=== PATIENT | female | born 1995 | race Caucasian/White ===

== ENCOUNTER 2017-05-12 19:05 | Inpatient (IN) | payer OTHER ==
[~2017-05-12] VITALS: Ht 154.9 cm; Wt 163.0 kg
[~2017-05-12 19:05] MED LIST: PRENATAL TABLE1 EAC1
== END 2017-05-15 15:27 | DRG 775 ==
LOC: LDR 19:05 → OB/GYN 05-14 01:19
PROC: 10E0XZZ Delivery of Products of Conception, External Approach (ICD-10-PCS; principal; 2017-05-12)
PROC: 0W8NXZZ Division of Female Perineum, External Approach (ICD-10-PCS; 2017-05-12)
PROC: 3E0P7VZ Introduction of Hormone into Female Reproductive, Via Natural or Artificial Opening (ICD-10-PCS; 2017-05-12)
PROC: 4A1HXCZ Monitoring of Products of Conception, Cardiac Rate, External Approach (ICD-10-PCS; 2017-05-12)
DX: O80 Encounter for full-term uncomplicated delivery (principal); Z37.0 Single live birth; Z3A.39 39 weeks gestation of pregnancy

== ENCOUNTER 2018-07-30 07:23 | Inpatient (IN) | payer OTHER ==
[~2018-07-30] VITALS: Ht 154.9 cm; Wt 71.2 kg
== END 2018-08-02 13:47 | disposition home or self-care (01) | DRG 807 ==
LOC: OBS/DEL 07:23 → LDR 07-31 02:44 → OB/GYN 07-31 06:44
PROVIDERS: ADMIT Obstetrics & Gynecology
PROC: 10E0XZZ Delivery of Products of Conception, External Approach (ICD-10-PCS; principal; 2018-07-31)
PROC: 10907ZC Drainage of Amniotic Fluid, Therapeutic from Products of Conception, Via Natural or Artificial Opening (ICD-10-PCS; 2018-07-31)
PROC: 4A1HXCZ Monitoring of Products of Conception, Cardiac Rate, External Approach (ICD-10-PCS; 2018-07-31)
DX: O80 Encounter for full-term uncomplicated delivery (principal); Z37.0 Single live birth; Z3A.37 37 weeks gestation of pregnancy; Z22.330 Carrier of Group B streptococcus

== ENCOUNTER 2021-09-02 17:27 | Emergency (ER) | payer OTHER ==
[~2021-09-02] VITALS: Ht 152.4 cm; Wt 65.3 kg
[2021-09-02] MEDS ORDERED: NAPROXEN500 MG PO (22:38)
[2021-09-02] MEDS ORDERED: BACTRIM DS TAB1 EACH PO (22:38)
== END 2021-09-02 22:52 | disposition home or self-care (01) ==
LOC: ER 17:27
DX: N39.0 Urinary tract infection, site not specified (principal); N93.8 Other specified abnormal uterine and vaginal bleeding; R10.2 Pelvic and perineal pain